=== PATIENT | male | born 1965 | race Caucasian/White ===

== ENCOUNTER 2018-12-15 18:46 | Emergency (ER) | payer OTHER ==
[2018-12-15] MEDS ORDERED: ROCURONIUM BROMIDE INJ 50 MG/5 ML VIAL IV ONE (18:59)
--- NOTE | 2018-12-15 19:07 | ER Document Report ---
ED General - General Chief Complaint: Cardiac Arrest Stated Complaint: UNRESPONSIVE Time Seen by Provider: 12/15/18 18:58 - HPI Notes: No history is limited, all history comes via EMS. 53-year-old male presents as a prehospital cardiac arrest with return of spontaneous circulation. Patient allegedly was at home, had a witnessed arrest with immediate institution of CPR. According to EMS there were no antecedent complaints. He had an estimated 13- minute downtime prior to EMS arrival with CPR the entire time. On their arrival he was found to be in asystole. Sustained an additional 12 minutes of ACLS protocols included multiple doses of epinephrine and then they state that they achieved return of spontaneous circulation with a sinus rhythm. Noted to be hypotensive that time, Levophed drip was initiated however we discovered in the emergency department that the line was occluded with a clamp so he did not receive this. Patient then had a subsequent pulseless V. tach arrest for which she received epinephrine but I am not told that he was defibrillated. Again had return of spontaneous circulation. He presents with a pulse, normal blood pressure, unresponsive. According EMS he was not having purposeful movement but was "bucking the tube" so they administered 250 mg of IV ketamine. He has an alleged history of cardiomyopathy with a low EF, minimal information is available. EMS made multiple attempts at intubation unsuccessfully, ultimately placed a Fer LT supraglottic airway. - Related Data Allergies/Adverse Reactions: Unable to Assess Allergy (Unverified 12/15/18 19:32) Past Medical History - Social History Smoking Status: Unknown if Ever Smoked Family History: Other - Unavailable as patient is in cardiac arrest - Past Medical History Other: Unobtainable. EMS reports an EF of 30%, COPD Review of Systems - Review of Systems -: Yes ROS unobtainable due to patient's medical condition Physical Exam - Vital signs Vitals: Pulse Ox 98 12/15/18 18:48 - Notes Notes: General: Severe distress, LT airway in place. HEENT: Normocephalic, atraumatic. Mildly constricted, reactive. Mucosa moist. Teeth neck. No obvious JVD. Chest: No trauma, normal excursion. Respiratory: Fair air exchange, no rales. Cardiac: Regular rhythm. Diminished, no murmurs rubs or gallops. Abdomen: Soft, benign. The distended Back: No asymmetry or gross abnormality. Motor: Absent tone and power Neurologic: GCS 3, does not withdraw to pain. Vascular: Well perfused Skin: No petechiae or purpura Course - Re-evaluation Re-evalutation: 12/15/18 19:24 53-year-old male presents after cardiac arrest return of spontaneous circulation. Medically ill. Airway secured as described below by myself. He received rocuronium, is placed on a Precedex drip for sedation after. At this time labs and x-ray are pending. Intubation was verified by capnography. Patient is a good candidate for therapeutic hypothermia, I am informed that he surpasses the ability for us to care for him given his potential critical care needs here at [facility]. I have spoken with Dr. Santiago at [facility] who is accepted him to the ICU. 12/15/18 21:16 Labs reviewed. CBC unremarkable, chemistry unremarkable, troponin normal. Patient is slowly having his core temperature dropped with axillary, inguinal and neck ice packing. Chest x-ray shows it to be high at 6 cm, tube is advanced. X-ray is held as the air medical transport team is here and ready to transport. Will readjust clinically for bilateral aeration. - Vital Signs Vital signs: Temp Pulse Resp BP Pulse Ox 12 95/63 L 100 12/15/18 20:31 12/15/18 20:31 12/15/18 20:31 - Laboratory Result Diagrams: 12/15/18 18:50 12/15/18 18:50 Laboratory results interpreted by me: 12/15/18 12/15/18 12/15/18 18:50 18:50 20:50 RBC 4.19 L MCV 98 H Carbonic Acid 2.36 H ABG pH 7.11 L* ABG pCO2 78.3 H* ABG pO2 196.3 H ABG HCO3 24.4 H ABG O2 Saturation 98.9 H Sodium 136.9 L Carbon Dioxide 20 L Glucose 235 H Calcium 8.3 L - EKG Interpretation by Pa EKG shows normal: Sinus rhythm, Intervals, QRS Complexes When compared to previous EKG there are: No significant change Procedures - Intubation Orotracheal Airway evaluation: Large tongue, Obese Medications: Etomidate, Other - Rocuronium Intubation method: Orotracheal Blade type: Lizabeth Blade size: 4 ETT size: 8.0 ETT secured at: Teeth ETT secured at (cm): 23 Breath Sounds after Intubation: Equal End tidal CO2 confirmed: Yes Post Intubation Xray: Yes - Tube high, advanced Critical Care Note - Critical Care Note Total time excluding time spent on procedures (mins): 35 Comments: Inclusive of resuscitation, review records, arranging transport discussed the case with consultants, does not include time spent perform procedures. Discharge - Discharge Clinical Impression: Cardiac arrest Condition: Serious Disposition: [facility]
[2018-12-15 19:11] LABS: HEMATOCRIT 41.2 % (37.9-51.0); HEMOGLOBIN 13.7 g/dL (13.5-17.0); MEAN CORPUSCULAR HEMOGLOBIN 32.6 pg (27.0-33.4); MEAN CORPUSCULAR HGB CONC 33.2 g/dL (32.0-36.0); MEAN CORPUSCULAR VOLUME 98 fl (80-97); PLATELET COUNT 177 10^3/uL (150-450); RED BLOOD COUNT 4.19 10^6/uL (4.35-5.55); RED CELL DISTRIBUTION WIDTH 13.3 % (11.5-14.0)
[2018-12-15] MEDS ORDERED: DEXMEDETOMIDINE IN 0.9 % NACL 400 MCG/100 ML RTUPB IV ONE (19:11)
[2018-12-15 19:29] LABS: ABSOLUTE LYMPHOCYTES# (MANUAL) 1.4 10^3/uL (0.5-4.7); ABSOLUTE MONOCYTES # (MANUAL) 0.7 10^3/uL (0.1-1.4); BAND NEUTROPHILS % (MANUAL) 4 % (3-5); BASOPHILS % (MANUAL) 1 % (0-2); EOSINOPHILS % (MANUAL) 1 % (0-6); HYPOCHROMASIA SLIGHT; LYMPHOCYTES % (MANUAL) 13 % (13-45); MONOCYTES % (MANUAL) 9 % (3-13); PLATELET COMMENT ADEQUATE; SEGMENTED NEUTROPHILS % (MAN) 67 % (42-78); TOTAL CELLS COUNTED 100
[2018-12-15 19:30] LABS: ALBUMIN 3.9 g/dL (3.5-5.0); ALKALINE PHOSPHATASE 107 U/L (38-126); ANION GAP 18 (5-19); ASPARTATE AMINO TRANSFERASE 49 U/L (17-59); BILIRUBIN,DIRECT 0.3 mg/dL (0.0-0.4); BILIRUBIN,TOTAL 0.5 mg/dL (0.2-1.3); BLOOD UREA NITROGEN 15 mg/dL (7-20); CALCIUM 8.3 mg/dL (8.4-10.2); CARBON DIOXIDE 20 mmol/L (22-30); CHLORIDE 99 mmol/L (98-107); CREATINE KINASE 60 U/L (55-170); GLUCOSE 235 mg/dL (75-110); POTASSIUM 4.4 mmol/L (3.6-5.0); TOTAL PROTEIN 6.7 g/dL (6.3-8.2)
[2018-12-15] MEDS ORDERED: NOREPINEPHRINE BITARTRATE INJ/PF 4 MG/4 ML SDV IV ONE (19:44)
[2018-12-15 19:48] LABS: CREATINE KINASE MB 2.07 ng/mL (<4.55)
[2018-12-15 19:49] LABS: TROPONIN I < 0.012 ng/mL
--- NOTE | 2018-12-15 19:49 | RADIOLOGY REPORT (SQ) ---
EXAM DESCRIPTION: CHEST SINGLE VIEW COMPLETED DATE/TIME: 12/15/2018 7:18 pm REASON FOR STUDY: bed t2 post arrest COMPARISON: None. EXAM PARAMETERS: NUMBER OF VIEWS: One view. TECHNIQUE: Single frontal radiographic view of the chest acquired. RADIATION DOSE: NA LIMITATIONS: None. FINDINGS: LUNGS AND PLEURA: No opacities, masses or pneumothorax. No pleural effusion. MEDIASTINUM AND HILAR STRUCTURES: No masses. Contour normal. HEART AND VASCULAR STRUCTURES: Cardiomegaly without pulmonary edema. BONES: No acute findings. HARDWARE: Endotracheal tube has its tip 6 cm above the anthony. An NG tubes extends just inside the s tomach. OTHER: No other significant finding. IMPRESSION: Cardiomegaly without pulmonary edema. NG tube and endotracheal tube as described. TECHNICAL DOCUMENTATION: JOB ID: [id number] [email or web address]- All Rights Reserved Reading location - IP/workstation name: [email or web address]
[2018-12-15] MEDS ORDERED: DEXMEDETOMIDINE IN 0.9 % NACL 400 MCG/100 ML RTUPB IV PRN (20:35)
[2018-12-15 20:59] LABS: ARTERIAL BLOOD BASE EXCESS -6.8 mmol/L; ARTERIAL BLOOD FIO2 100%; ARTERIAL BLOOD H2CO3 2.36 mmol/L (1.05-1.35); ARTERIAL BLOOD HCO3 24.4 mmol/L (20-24); ARTERIAL BLOOD O2 SATURATION 98.9 % (94-98); ARTERIAL BLOOD PO2 196.3 mmHg (80-100); ARTERIAL BLOOD TOTAL CO2 26.8 mmol/L (23-27)
[2018-12-15 21:01] LABS: ARTERIAL BLOOD PCO2 78.3 mmHg (35-45); ARTERIAL BLOOD PH 7.11 (7.35-7.45)
[2018-12-15 21:25] VITALS: BP 94/66
== END 2018-12-15 21:55 | disposition short-term general hospital (02) ==
LOC: ER 18:46
PROC: 0BH17EZ Insertion of Endotracheal Airway into Trachea, Via Natural or Artificial Opening (ICD-10-PCS; principal; 2018-12-15)
DX: I46.9 Cardiac arrest, cause unspecified (principal)
CPT/HCPCS: 36415; 82553; 82803; 82550; 85025; 80053; 84484; 71045; 31500; J3490; 94660; C1751